=== PATIENT | female | born 2000 | race Caucasian/White ===

== ENCOUNTER 2022-12-10 08:06 | Emergency (ER) | payer MEDICAID ==
[~2022-12-10] VITALS: Ht 162.6 cm; Wt 61.4 kg
[2022-12-10] MEDS ORDERED: ZOLOFT 50MG50 MG PO (08:20)
[2022-12-10] MEDS ORDERED: LEXAPRO20 MG (08:20)
[2022-12-10 09:00] VITALS: BP 127/88; PULSE 80; TEMP 98.1
== END 2022-12-10 09:00 | disposition home or self-care (01) ==
LOC: COL.ER 08:06
DX: S93.402A Sprain of unspecified ligament of left ankle, initial encounter (principal); W18.40XA Slipping, tripping and stumbling without falling, unspecified, initial encounter; Y93.K1 Activity, walking an animal